=== PATIENT | female | born 1990 | race Caucasian/White ===

== ENCOUNTER → 2020-08-04 11:54 | Outpatient (CLI) | payer OTHER, SELFPAY ==
--- NOTE | 2020-08-04 11:56 | DI.US.S_ITS ---
PROCEDURE: US OB >= 14 WK FETUS ADD GEST INDICATIONS: F/u anatomy scan - Heart not visualized well prev US OUTSIDE/PRIOR DATING DATA: First dating scan (date and location): 07/08/2020. Estimated date of delivery (JENNIFER) from first dating scan: 11/23/2020. TECHNIQUE: Real-time scanning was performed of the fetuses, with image documentation and biometric measurements. Endovaginal scanning: No COMPARISON: None. FINDINGS: General: An intrauterine dichorionic-diamniotic twin is present, as evidenced by separate placentas, differing sexes, or an intervening membrane of greater than 2 mm. Composite amniotic fluid index: Not evaluated. Maternal cervical canal: Not evaluated. FETUS A: Limited anatomic survey demonstrating normal appearance of the four-chamber heart and cardiac outflow tracts. Heart rate measures 153 beats per minute. FETUS B: Limited anatomic survey demonstrates normal appearance of the four-chamber heart and cardiac outflow tracts. Heart rate measures 150 beats per minute. Gestational age estimated at 24 weeks 2 days by prior ultrasound. IMPRESSION: 1. Living diamniotic dichorionic twin with age estimated at 24 weeks 2 days by prior ultrasound. 2. Normal appearance of the four-chamber heart and cardiac outflow tracts for each fetus. Dictated by: Valeriy DE LA PAZ Interpreted: Alli Ambrocio MD on 08/07/2020 at 16:01 Transcribed by: FRANKLIN on 08/07/2020 at 16:07 Approved by: Alli Ambrocio M.D. on 08/07/2020 at 16:54
== END ==
PROVIDERS: Referring Provider Specialist; Visit Provider Specialist
DX: Z36.2 Encounter for other antenatal screening follow-up (principal); O30.042 Twin pregnancy, dichorionic/diamniotic, second trimester; Z3A.24 24 weeks gestation of pregnancy
CPT/HCPCS: 76812; 76816

== ENCOUNTER → 2020-08-21 13:05 | Outpatient (CLI) | payer OTHER, SELFPAY ==
[2020-08-21 14:35] LABS: Hematocrit 33.5 % (36-46); Hemoglobin 11.9 g/dL (12.0-16.0)
[2020-08-21 14:50] LABS: GTT (PREG) 1 Hour PP 50gm Dose 175 mg/dL (76-139)
[2020-08-22 10:37] LABS: Varicella IgG Antibody <135 index (Immune >165)
== END ==
PROVIDERS: PCP Student in an Organized Health Care Education/Training Program; Referring Provider Specialist; Visit Provider Specialist
DX: O30.009 Twin pregnancy, unspecified number of placenta and unspecified number of amniotic sacs, unspecified trimester (principal); Z3A.25 25 weeks gestation of pregnancy
CPT/HCPCS: 36415; 82950; 85014; 85018; 86787; 86850

== ENCOUNTER → 2020-08-22 08:48 | Outpatient (CLI) | payer OTHER, SELFPAY ==
[2020-08-22 10:17] LABS: Glucose Fasting Gestational 74 mg/dL (76-95)
[2020-08-22 11:17] LABS: Glucose 1 Hour Gest 158 mg/dL (76-180)
[2020-08-22 12:23] LABS: Glucose Tol Interp,Gestational INTERPRETATION
[2020-08-22 13:24] LABS: Glucose 2 Hour Gest 177 mg/dL (76-155)
[2020-08-22 13:25] LABS: Glucose 3 Hour Gest 144 mg/dL (76-140)
== END ==
PROVIDERS: PCP Student in an Organized Health Care Education/Training Program; Referring Provider Specialist; Visit Provider Specialist
DX: Z34.02 Encounter for supervision of normal first pregnancy, second trimester (principal)
CPT/HCPCS: 36415; 82951; 82952

== ENCOUNTER 2020-08-23 10:04 | Outpatient (CLI) | payer OTHER, SELFPAY ==
--- NOTE | 2020-08-23 10:39 | DI.US.S_ITS ---
PROCEDURE: US OB LIMITED INDICATIONS: BLEEDING OUTSIDE/PRIOR DATING DATA: Last menstrual period (LMP): Not given. LMP-based estimated date of delivery (JENNIFER): Unknown. First dating scan (date and location): [place], 08/04/2020. Estimated date of delivery (JENNIFER) from first dating scan: Given as 11/23/2020. TECHNIQUE: Real-time scanning was performed of the fetuses, with image documentation. Endovaginal scanning: Performed for better visualization of the cervix COMPARISON: [facility], OB >= 14 WK FETUS ADD GEST, 08/04/2020, 12:25. [facility], US OB >= 14 WEEKS FETUS, 08/21/2020, 14:50. FINDINGS: General: An intrauterine dichorionic-diamniotic twin is present, as evidenced by separate placentas, differing sexes, or an intervening membrane of greater than 2 mm. Composite amniotic fluid index: Not measured Maternal cervical canal: Shortened at 1.6 cm long. There is moderate to prominent funneling seen of the internal cervical os, measuring 2.2 cm. FETUS A: Fetus is located on the maternal right side, and is in vertex presentation. Placenta: No findings of abruption. heart rate: 145 beats per minute. FETUS B: Fetus is located on the maternal left side, and is in vertex presentation. Placenta: No findings of abruption. heart rate: 158 beats per minute. IMPRESSION: Abnormal cervix, which is shortened at 1.6 cm. There is moderate to prominent funneling seen of the internal cervical os, measuring 2.2 cm. Live twin . Dictated by: Constantin Calderon M.D. on 08/23/2020 at 10:29 Approved by: Constantin Calderon M.D. on 08/23/2020 at 10:34
[2020-08-23] MEDS: BETAMETHASONE 30 MG/5 ML MDV 12 MG IM (12:35)
--- NOTE | 2020-08-23 13:06 | PM.OBTRLD ---
Visit Information Visit Information Date of evaluation: 08/23/20 Primary OB Provider: Quin Pretty Reason for Evaluation: Yes other Comments/Additional reasons for admission: 29-year-old G1 para 0 27 weeks gestational age diet diet twins called via phone because of some spotting of bright red blood a little bit when she wipes no cramping no heavy bleeding no dysuria frequency headache right upper quadrant pain. Good movement. Was in the office earlier this week with Dr. Pretty had concerned about cervical length shortening. Patient states she has been feeling fine other than the little bit of spotting of blood. Patient evaluated in the Center with nonstress test both fetuses looked good. And an ultrasound. There was no concern about plants until bleeding or abruption. Cervical length was shortened. Patient was not raúl. Patient after evaluation was encouraged to have modified bed rest and follow-up with her physician here next week for another appointment. PENDING SALE TO [facility] Medical History (Updated 08/07/20 @ 17:59 by Quin Pretty MD) Abnormal Pap smear of cervix (~2018) Acid reflux Allergic rhinitis Dichorionic diamniotic twin (~04/21/20) Disordered eating Dysmenorrhea Eczema of both hands Endometriosis determined by laparoscopy (~12/27/19) Foot fracture, left Gastric ulcer Hemorrhoids IBS (irritable bowel syndrome) Infertility Kidney stones (~05/2020) Left forearm fracture (~2011) Migraine Ovarian cyst Strep throat (~2007) Uterine fibroid Surgical History (Updated 08/04/20 @ 10:51 by Damari Naranjo RN) History of esophagogastroduodenoscopy (EGD) (~07/2019) History of tonsillectomy (~2009) S/P laparoscopy (~12/27/19) [place] teeth extracted (~2007) Family History (Updated 08/04/20 @ 11:04 by Damari Naranjo RN) Mother Diabetes mellitus Type 2 diabetes mellitus Father No problems noted. Grandmother Chronic a-fib Grandfather Diabetes mellitus Myocarditis, idiopathic Grandmother Arthritis Grandfather Malignant carcinoid tumor of colon Cancer Colon cancer Family/Other Alcohol addiction Family/Other Alcohol addiction Multiple sclerosis Sister No problems noted. 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
== END 2020-08-23 12:40 ==
LOC: OB 08-26 07:45
PROVIDERS: PCP Student in an Organized Health Care Education/Training Program; Referring Provider Family Medicine; Visit Provider Family Medicine
DX: O30.042 Twin pregnancy, dichorionic/diamniotic, second trimester (principal); O20.9 Hemorrhage in early pregnancy, unspecified; Z3A.26 26 weeks gestation of pregnancy
CPT/HCPCS: 59025; 76812; 76815; G0378; G0379; J0702

== ENCOUNTER 2020-08-24 11:43 | Outpatient (CLI) | payer OTHER, SELFPAY ==
[2020-08-24] MEDS: BETAMETHASONE 30 MG/5 ML MDV 12 MG IM (12:19)
== END 2020-08-24 12:40 | disposition home or self-care (01) ==
LOC: LABOR 12:19 → OB 08-26 07:45
PROVIDERS: PCP Student in an Organized Health Care Education/Training Program; Referring Provider Specialist; Visit Provider Specialist
DX: O30.042 Twin pregnancy, dichorionic/diamniotic, second trimester (principal); Z3A.27 27 weeks gestation of pregnancy
CPT/HCPCS: 59025; 96372; G0378; G0379; J0702

== ENCOUNTER → 2020-08-26 14:54 | Outpatient (CLI) | payer OTHER, SELFPAY ==
[2020-08-27 18:41] LABS: Strep Grp B PCR NEG for Grp B Strep
== END ==
PROVIDERS: PCP Student in an Organized Health Care Education/Training Program; Visit Provider Specialist
DX: Z34.02 Encounter for supervision of normal first pregnancy, second trimester (principal); Z3A.27 27 weeks gestation of pregnancy
CPT/HCPCS: 87653

== ENCOUNTER 2020-08-28 11:03 | Outpatient (CLI) | payer OTHER, SELFPAY ==
--- NOTE | 2020-08-28 11:38 | PM.OBTRLD ---
Visit Information Visit Information Date of evaluation: 08/28/20 Primary OB Provider: Quin Pretty On-call OB Provider: Vee Taylor Reason for Evaluation: Yes non-stress test Comments/Additional reasons for admission: This patient is a 29 yo @27+3 with spontaneous di/di twins, presenting after loss of mucus this AM with some wetness on her underwear adjacent to the mucus. No ongoing leakage, no ctx, good movement x2. Being followed for shortening but not dilating cervix. Vital Signs Vital Signs: 100/60, HR 74 PFSH Medical History Abnormal Pap smear of cervix (~2018) Acid reflux Acne Allergic rhinitis Chicken pox (~1989) Dichorionic diamniotic twin (~04/21/20) Disordered eating Dysmenorrhea Eczema of both hands Endometriosis determined by laparoscopy (~12/27/19) Foot fracture, left Gastric ulcer Hand fracture, left Hemorrhoids IBS (irritable bowel syndrome) Infertility (~2019) Kidney stones (~05/2020) Left forearm fracture (~2011) Migraine Ovarian cyst Strep throat (~2007) Uterine fibroid Surgical History Anesthesia History of esophagogastroduodenoscopy (EGD) (~07/2019) History of tonsillectomy (~2009) S/P laparoscopy (~12/27/19) [place] teeth extracted (~2007) Family History Mother Diabetes mellitus Type 2 diabetes mellitus Father No problems noted. Grandmother Chronic a-fib Hypertension Grandfather Diabetes mellitus Myocarditis, idiopathic Grandmother Arthritis Grandfather Malignant carcinoid tumor of colon Cancer Colon cancer Family/Other Alcohol addiction Family/Other Alcohol addiction Multiple sclerosis Sister No problems noted. 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 ) Smoking Status: Never smoker Tobacco: How many years used: 0 second hand exposure: No alcohol intake: former (pre- : occasional use) substance use type: does not use Review of Systems Constitutional Constitutional: Reports system reviewed and no additional complaints, except as documented Gastrointestinal Gastrointestinal: Reports system reviewed and no additional complaints, except as documented Genitourinary Genitourinary: Reports system reviewed and no additional complaints, except as documented Evaluation Evaluation Baseline heart rate: 150 Variability: Average (6-10) monitor accelerations: Absent (appropriate for gestational age) Monitor Decelerations: Absent Contraction Frequency (minutes): 0 Status: Category l Non-invasive Membranes Rupture Test: negative Comments: Baby B: Baseline 150, moderate variability, appropriate EFM for gestational age. No contractions or uterine irritability. Diagnosis, Plan/Disposition Plan/Disposition Plan: Home with precautions and outpatient follow up. OB Disposition: home
== END 2020-08-28 11:52 | disposition home or self-care (01) ==
LOC: LABOR 11:37 → OB 08-29 15:46
PROVIDERS: PCP Student in an Organized Health Care Education/Training Program; Referring Provider Specialist; Visit Provider Specialist
DX: Z03.71 Encounter for suspected problem with amniotic cavity and membrane ruled out (principal); O30.043 Twin pregnancy, dichorionic/diamniotic, third trimester; Z3A.27 27 weeks gestation of pregnancy
CPT/HCPCS: 59025; 84112; G0378; G0379

== ENCOUNTER 2020-10-12 19:32 | Observation (INO) | payer OTHER, SELFPAY ==
[2020-10-12 21:13] LABS: RBC Urine None Seen (0-5/HPF); WBC Urine None Seen (0-5/HPF)
[2020-10-12 21:22] LABS: Appearance Urine UA CLEAR; Bilirubin Urine UA NEGATIVE (NEGATIVE); Color Urine UA YELLOW; Glucose Urine UA TRACE g/dL (Negative); Ketones Urine UA NEGATIVE (NEGATIVE); Leukocyte Esterase Urine UA NEGATIVE (NEGATIVE); Nitrite Urine UA NEGATIVE (Negative); Occult Blood Urine UA NEGATIVE (Negative); Protein Urine UA NEGATIVE (Negative); Urobilinogen Urine UA 0.2 E.U./dL (0.2)
[2020-10-12 21:29] LABS: pH Urine UA 5.5 (4.5-8.0)
[2020-10-12 21:41] LABS: Fetal Fibronectin Positive
[2020-10-12 21:49] LABS: Bacteria Urine Few (2-10); Squamous Epithelial Cell Urine 1-5 /HPF (0-5/HPF)
[2020-10-12 21:50] LABS: Culture Indicated Urine Cult Not Indicated
--- NOTE | 2020-10-13 07:59 | PM.OBTRLD ---
Visit Information Visit Information Date of evaluation: 10/12/20 Primary OB Provider: Quin Pretty On-call OB Provider: Esha Quintero Reason for Evaluation: Yes non-stress test and Yes pre-term labor Comments/Additional reasons for admission: Patient is a 29-year-old 1 para 0 with twins at 34-,1/7 weeks gestation. She called complaining of a lower abdominal and back pain. No leakage of fluid or vaginal bleeding. [facility] [place] Medical History (Updated 10/10/20 @ 16:37 by Quin Pretty MD) Abnormal Pap smear of cervix (~2018) Acid reflux Acne Allergic rhinitis Chicken pox (~1989) Dichorionic diamniotic twin (~04/21/20) Disordered eating Dysmenorrhea Eczema of both hands Endometriosis determined by laparoscopy (~12/27/19) Foot fracture, left Gastric ulcer Hand fracture, left Hemorrhoids IBS (irritable bowel syndrome) Infertility (~2019) Kidney stones (~05/2020) Left forearm fracture (~2011) Migraine Ovarian cyst Strep throat (~2007) Uterine fibroid Surgical History Anesthesia History of esophagogastroduodenoscopy (EGD) (~07/2019) History of tonsillectomy (~2009) S/P laparoscopy (~12/27/19) [place] teeth extracted (~2007) Family History Mother Diabetes mellitus Type 2 diabetes mellitus Father No problems noted. Grandmother Chronic a-fib Hypertension Grandfather Diabetes mellitus Myocarditis, idiopathic Grandmother Arthritis Grandfather Malignant carcinoid tumor of colon Cancer Colon cancer Family/Other Alcohol addiction Family/Other Alcohol addiction Multiple sclerosis Sister No problems noted. 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 ) Smoking Status: Never smoker Tobacco: How many years used: 0 second hand exposure: No alcohol intake: former (pre- : occasional use) substance use type: does not use Objective Labs Labs: Laboratory Results - last 24 hr 10/12/20 10/12/20 20:45 21:00 Urine Color Yellow Urine Appearance Clear Urine pH 5.5 Ur Specific [place] 1.010 Urine Protein Negative Urine Glucose (UA) Trace H Urine Ketones Negative Urine Occult Blood Negative Urine Nitrate Negative Urine Bilirubin Negative Urine Urobilinogen 0.2 Ur Leukocyte Esterase Negative Urine RBC None seen Urine WBC None seen Ur Squamous Epith Cells 1-5 /hpf Urine Bacteria Few (2-10) H Ur Culture Indicated? Cult not indicated Fibronectin Positive H Evaluation Evaluation Baseline heart rate: 130 Variability: Moderate (11-25) monitor accelerations: Present Monitor Decelerations: Absent Uterine Contraction Intensity: Mild Laboratory results: Laboratory Tests 10/12/20 10/12/20 20:45 21:00 Urine Color Yellow Urine Appearance Clear Urine pH 5.5 Ur Specific [place] 1.010 Urine Protein Negative Urine Glucose (UA) Trace H Urine Ketones Negative Urine Occult Blood Negative Urine Nitrate Negative Urine Bilirubin Negative Urine Urobilinogen 0.2 Ur Leukocyte Esterase Negative Urine RBC None seen Urine WBC None seen Ur Squamous Epith Cells 1-5 /hpf Urine Bacteria Few (2-10) H Ur Culture Indicated? Cult not indicated Fibronectin Positive H Diagnosis, Plan/Disposition Plan/Disposition Plan: Assessment: 29-year-old 1 para 0 with twins at 34 weeks gestation Not in labor Plan: Discharged home Follow-up with Dr. Arizmendi this week Signs and symptoms of labor reviewed OB Disposition: home
== END 2020-10-12 22:55 | disposition home or self-care (01) ==
LOC: LABOR 19:35
PROVIDERS: Admitting Provider Obstetrics & Gynecology; PCP Student in an Organized Health Care Education/Training Program; Referring Provider Obstetrics & Gynecology; Visit Provider Obstetrics & Gynecology
DX: O30.003 Twin pregnancy, unspecified number of placenta and unspecified number of amniotic sacs, third trimester (principal); O47.03 False labor before 37 completed weeks of gestation, third trimester; Z3A.34 34 weeks gestation of pregnancy
CPT/HCPCS: 59025; 59050; 81001; 82731; G0378; G0379

== ENCOUNTER → 2020-10-16 17:20 | Outpatient (CLI) | payer OTHER, SELFPAY ==
[2020-10-17 13:48] LABS: Strep Grp B PCR NEG for Grp B Strep
== END ==
PROVIDERS: PCP Student in an Organized Health Care Education/Training Program; Referring Provider Specialist; Visit Provider Specialist
DX: O30.049 Twin pregnancy, dichorionic/diamniotic, unspecified trimester (principal); Z3A.34 34 weeks gestation of pregnancy
CPT/HCPCS: 87653

== ENCOUNTER 2020-10-30 09:08 | Outpatient (CLI) | payer OTHER, SELFPAY ==
--- NOTE | 2020-10-30 10:19 | DI.US.S_ITS ---
PROCEDURE: US OB LIMITED INDICATIONS: TWINS; DECREASED MOVEMENT OUTSIDE/PRIOR DATING DATA: Last menstrual period (LMP): Known . LMP-based estimated date of delivery (JENNIFER): Unknown . First dating scan (date and location): 08/04/2020 . Estimated date of delivery (JENNIFER) from first dating scan: 11/23/2020 . TECHNIQUE: Real-time scanning was performed of the fetuses, with image documentation and biometric measurements. Endovaginal scanning: None COMPARISON: [facility], OB LIMITED, 08/23/2020, 10:59. FINDINGS: General: An intrauterine dichorionic-diamniotic twin is present, as evidenced by separate placentas, differing sexes, or an intervening membrane of greater than 2 mm. Amniotic fluid index (composite): 9.4 and 7.5 cm. Maternal cervical canal: Not visualized FETUS A: Fetus is located on the maternal right side, and is in vertex, high presentation. Amniotic fluid index: 9.4 cm; Placental position is anterior , without previa. heart rate: 143 beats per minute. biometrics: Biparietal diameter: 8.9 cm, 35 week 0 day Head circumference: 32 cm, 36 week 0 day Abdominal circumference: 33.0 cm, 36 week 6 day Femur length: 7.1 cm, 36 week 2 day Estimated gestational age from initial scan: 36 week 4 day Composite gestational age from present scan: 36 week 0 day. Estimated weight and percentile: 2936 g, 58th percentile. Measurement variability for biometric dating: +/- 7 days from 14 weeks to 15 weeks 6 days gestation, +/- 10 days from 16 weeks to 21 weeks 6 days gestation, +/- 2 weeks from 22 weeks to 27 weeks 6 days gestation, +/- 3 weeks for 28 weeks gestation or later. weight reference: 4500 g or EFW >90/95% is considered macrosomia or large for gestational age. EFW <10% is small for gestational age. EFW 5% or less is considered intra-uterine growth restriction. Biophysical Profile: Tone: 2 points. Movement: 2 points. Respiration: 2 points. Largest pocket of fluid: 2 points. FETUS B: Fetus is located on the maternal left side, and is in vertex, low presentation. Amniotic fluid index: 7.5 cm Placental position is anterior , without previa. heart rate: 162 beats per minute. biometrics: Biparietal diameter: 9.2 cm, 37 week 3 day Head circumference: 33.3 cm, 38 week 0 day Abdominal circumference: 31.6 cm, 35 week 4 day Femur length: 4.7 cm, 35 week 5 day Estimated gestational age from initial scan: 36 week 4 day Composite gestational age from present scan: 36 week 5 day. Estimated weight and percentile: 2842 g, 40th percentile. Measurement variability for biometric dating: +/- 7 days from 14 weeks to 15 weeks 6 days gestation, +/- 10 days from 16 weeks to 21 weeks 6 days gestation, +/- 2 weeks from 22 weeks to 27 weeks 6 days gestation, +/- 3 weeks for 28 weeks gestation or later. weight reference: 4500 g or EFW >90/95% is considered macrosomia or large for gestational age. EFW <10% is small for gestational age. EFW 5% or less is considered intra-uterine growth restriction. Biophysical profile: Tone: 2 points. Movement: 2 points. Respiration: 2 points. Largest pocket of fluid: 2 points. IMPRESSION: Twin gestation consistent with approximately 36 week gestation Fetus A has prominent right renal pelvis measuring 7 mm Normal biophysical profiles Approved by: Pio Magallanes M.D. on 10/30/2020 at 13:25
--- NOTE | 2020-10-30 11:20 | PM.OBTRLD ---
Visit Information Visit Information Date of evaluation: 10/30/20 Primary OB Provider: Quin Pretty On-call OB Provider: Luther Can Reason for Evaluation: Yes non-stress test Comments/Additional reasons for admission: Decreased movement of one of the twins Vital Signs Vital Signs: See OBIX flowsheet [facility] Medical History Abnormal Pap smear of cervix (~2018) Acid reflux Acne Allergic rhinitis Chicken pox (~1989) Dichorionic diamniotic twin (~04/21/20) Disordered eating Dysmenorrhea Eczema of both hands Endometriosis determined by laparoscopy (~12/27/19) Foot fracture, left Gastric ulcer Hand fracture, left Hemorrhoids IBS (irritable bowel syndrome) Infertility (~2019) Kidney stones (~05/2020) Left forearm fracture (~2011) Migraine Ovarian cyst Strep throat (~2007) Uterine fibroid Surgical History Anesthesia History of esophagogastroduodenoscopy (EGD) (~07/2019) History of tonsillectomy (~2009) S/P laparoscopy (~12/27/19) [place] teeth extracted (~2007) Family History Mother Diabetes mellitus Type 2 diabetes mellitus Father No problems noted. Grandmother Chronic a-fib Hypertension Grandfather Diabetes mellitus Myocarditis, idiopathic Grandmother Arthritis Grandfather Malignant carcinoid tumor of colon Cancer Colon cancer Family/Other Alcohol addiction Family/Other Alcohol addiction Multiple sclerosis Sister No problems noted. 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 BPP 8/8 for each as well. Diagnosis, Plan/Disposition Final Diagnosis (1) Dichorionic diamniotic twin : Status: Acute (2) : Status: Acute Plan/Disposition Plan: The patient expects to be contacted by [facility] to schedule an induction of her twins next week. If she goes into spontaneous labor however she will plan to present to center for care and delivery. OB Disposition: home
== END 2020-10-30 10:50 | disposition home or self-care (01) ==
LOC: LABOR 11:44 → OB 10-31 07:11
PROVIDERS: PCP Student in an Organized Health Care Education/Training Program; Referring Provider Specialist; Visit Provider Specialist
DX: O36.8130 Decreased fetal movements, third trimester, not applicable or unspecified (principal); O30.043 Twin pregnancy, dichorionic/diamniotic, third trimester; Z3A.36 36 weeks gestation of pregnancy
CPT/HCPCS: 59025; 76812; 76815; 76819; G0378; G0379

== ENCOUNTER 2020-11-01 15:40 | Outpatient (CLI) | payer OTHER, SELFPAY | END 2020-11-01 17:33 | disposition home or self-care (01) | LOC: OB 11-03 09:50 | PROVIDERS: PCP Student in an Organized Health Care Education/Training Program; Referring Provider Specialist; Visit Provider Specialist | DX: O30.043 Twin pregnancy, dichorionic/diamniotic, third trimester (principal); Z3A.36 36 weeks gestation of pregnancy | CPT/HCPCS: 59025; 59050; G0378; G0379 ==

== ENCOUNTER → 2025-01-16 11:17 | Outpatient (CLI) | payer OTHER, SELFPAY ==
[2025-01-16 15:03] LABS: Urine N gonorrhoeae NOT DETECTED
[2025-01-16 15:04] LABS: Urine Chlamydia NOT DETECTED
== END ==
PROVIDERS: PCP Family Medicine; Visit Provider Obstetrics & Gynecology
DX: Z34.80 Encounter for supervision of other normal pregnancy, unspecified trimester (principal); Z3A.08 8 weeks gestation of pregnancy
CPT/HCPCS: 87491; 87591

== ENCOUNTER → 2025-01-29 10:33 | Outpatient (CLI) | payer OTHER, SELFPAY ==
[2025-01-29 11:37] LABS: Add Manual Diff / Slide Review NO; Hematocrit 37.1 % (36-46); Hemoglobin 13.1 g/dL (12.0-16.0); Lymphocytes Absolute Auto 1600 /uL (1100-4500); Mean Corpuscular HGB Conc 35.4 % (30-36); Mean Corpuscular Hemoglobin 31.4 PG (26-34); Mean Corpuscular Volume 88.5 fL (80-100); Platelet Count 229 X10^3/uL (150-400)
[2025-01-29 11:56] LABS: Natera Collection Specimen Collected
[2025-01-29 15:15] LABS: Hepatitis B Surface Antigen NEGATIVE s/c (NEGATIVE)
[2025-01-29 15:36] LABS: HIV 1 & 2 Ab/Ag 4th Gen Combo NEGATIVE (NEGATIVE); Hep C Virus Ab w/Reflex Quant NEGATIVE s/c (NEGATIVE)
== END ==
PROVIDERS: PCP Family Medicine; Referring Provider Obstetrics & Gynecology; Visit Provider Obstetrics & Gynecology
DX: O09.521 Supervision of elderly multigravida, first trimester (principal)
CPT/HCPCS: 36415; 80055; 86787; 86803; 86850; 86900; 86901; 87389